=== PATIENT | male | born 1980 | race African-American/Black ===

== ENCOUNTER 2017-05-08 18:25 | Emergency (ER) | payer BC ==
[2017-05-08] MEDS ORDERED: IV NORMAL SALINE 1000ML BAG 1,000 ML IV (19:15)
== END 2017-05-08 19:47 | disposition left against medical advice (07) ==
LOC: ER 18:25
DX: F16.10 Hallucinogen abuse, uncomplicated (principal); F12.10 Cannabis abuse, uncomplicated; I10 Essential (primary) hypertension; F10.20 Alcohol dependence, uncomplicated
CPT/HCPCS: 99283; 99284

== ENCOUNTER 2018-08-05 07:32 | Day surgery (SDC) | payer BC ==
--- NOTE | 2018-08-05 07:06 | HP ---
ADMIT DATE: HISTORY OF PRESENT ILLNESS: The patient is referred by Dr. Rich because of right inguinal mass. The history shows that he has had this mass for about 6 months to a year and is getting larger all the time. He does not have a lot of pain with it, but he states every morning when we wakes up it is gone, but it is back when he stands up. PAST MEDICAL HISTORY: Shows normal childhood diseases. He does have hypertension for which he takes medication. He has had arthroscopic shoulder surgery on the right, but no other surgery. He has no other diseases and has no allergies. SOCIAL HISTORY: Shows that he does use marijuana from time to time and drinks about 3 beers per day. He does not use illicit drugs otherwise. He does not smoke cigarettes, though he does use marijuana. FAMILY HISTORY: Noncontributory other than his mother had hypertension. REVIEW OF SYSTEMS: Basically negative except for this mass in the right groin. PHYSICAL EXAMINATION: GENERAL: Shows an alert male in no acute distress. HEAD, EYES, EARS, NOSE AND THROAT: Grossly normal. CHEST: Clear to auscultation bilaterally. HEART: He had no murmurs, heaves, friction rubs or thrills and the rate was estimated to be at 72 beats per minute and it was regular. ABDOMEN: Negative. GENITOURINARY: Examination of the genitalia also did show normal male genitalia with a large mass in the right groin, probably larger than a grapefruit. I could not reduce it. It was not particularly tender. RECTAL: Not done. EXTREMITIES: Grossly normal. IMPRESSION: 1. Hypertension. 2. Incarcerated right inguinal hernia. TRICIA OJEDA MD DR: LASHAWN/samantha JOB#: [id number] / [id number] WILLIAN
[~2018-08-05 07:32] MED LIST: AMLO10TA8 PO; AMLO2.5T2 PO; BUPIVAC MPF-EPI 0.5%-1:200000 30 ML VIAL. ONE; DOCU-109 PO; HYDROmorphone 2 MG/ML VIAL IV PRN; IV RINGERS,LACTATED 1000ML 1,000 ML IV SCH; LIDOCAINE 1% PF 2 ML VIAL. ID PRN; MORPHINE SULFATE 2 MG/ML VIAL. IV PRN; ONDA4TAB10 SL; ONDANSETRON PF 4 MG/2 ML VIAL. IV PRN; OXYC1TAB15 PO; PROCHLORPERAZINE 10 MG/2 ML VIAL. IV PRN; fentaNYL PF VIAL 100 MCG/2 ML VIAL IV PRN
[2018-08-05] MEDS ORDERED: ceFAZolin SODIUM 3 GM in IV DEXTROSE 5% 100ML 100 ML IV PRN (08:00)
--- NOTE | 2018-08-05 08:16 | PDOC ---
SURGICAL PROGRESS NOTE Subjective Surgeon...........................Reinaldo Preop Diagnosis...............Incarcerated right inguinal hernia Post op Diagnosis............same Anesthesia......................general Procedure........................Inguinal hernia repair Blood loss.......................7 cc Drains.............................none Fluids.............................see anesthesia sheet Condition.........................satisfactory TRICIA OJEDA MD Aug 05, 2018 08:16
[2018-08-05 08:23] LABS: BASO % 1 % (0-3); EOS # 0.1 x10^3/uL (0.0-0.7); EOS % 1 % (0-3); HEMATOCRIT 37.9 % (39.0-53.0); LYMPH # 1.8 x10^3/uL (1.0-4.8); LYMPH % 33 % (24-48); MEAN CORPUSCULAR HEMOGLOBIN 27 pg (25-35); MEAN CORPUSCULAR HGB CONC 34 g/dL (31-37); MEAN CORPUSCULAR VOLUME 80 fL (79-100); MONO # 0.5 x10^3/uL (0.0-1.1); MONO % 9 % (0-9); NEUT % 56 % (31-73); PLATELET COUNT 249 x10^3/uL (140-400); RED BLOOD COUNT 4.76 x10^6/uL (4.30-5.70); RED CELL DISTRIBUTION WIDTH 13.4 % (11.5-14.5); WHITE BLOOD COUNT 5.4 x10^3/uL (4.0-11.0)
[2018-08-05 08:33] LABS: CALCIUM 8.9 mg/dL (8.5-10.1); CREATININE 1.3 mg/dL (0.7-1.3); POTASSIUM 3.9 mmol/L (3.5-5.1)
[2018-08-05 08:40] LABS: ALBUMIN 3.8 g/dL (3.4-5.0); TOTAL BILIRUBIN 0.9 mg/dL (0.2-1.0); TOTAL PROTEIN 7.7 g/dL (6.4-8.2)
[2018-08-05 08:49] LABS: PROTHROMBIN TIME PATIENT 12.9 SEC (11.7-14.0)
[2018-08-05] MEDS ORDERED: fentaNYL PF VIAL 250 MCG/5 ML VIAL ONE (08:55)
[2018-08-05] MEDS ORDERED: MIDAZOLAM HCL/PF 2 MG/2 ML VIAL. ONE (08:55)
[2018-08-05] MEDS ORDERED: LIDOCAINE 2% PF 5 ML VIAL. ONE (08:56)
[2018-08-05] MEDS ORDERED: ONDANSETRON PF 4 MG/2 ML VIAL. ONE (08:56)
[2018-08-05] MEDS ORDERED: PROPOFOL 20 ML IV ONE (08:56)
[2018-08-05] MEDS ORDERED: DEXAMETHASONE SOD PHOS 20 MG/5 ML VIAL. ONE (08:56)
--- NOTE | 2018-08-05 09:28 | PDOC ---
SURGICAL PROGRESS NOTE Subjective No change i dictated H&P. Vital Signs Vital Signs Date Time Temp Pulse Resp B/P (MAP) Pulse Ox O2 Delivery O2 Flow Rate FiO2 08/05/18 08:00 97.7 63 16 152/100 95 Room Air 97.7 Labs Laboratory Tests Test 08/05/18 08:05 White Blood Count 5.4 x10^3/uL (4.0-11.0) Red Blood Count 4.76 x10^6/uL (4.30-5.70) Hemoglobin 13.0 g/dL (13.0-17.5) Hematocrit 37.9 % (39.0-53.0) Mean Corpuscular Volume 80 fL (79-100) Mean Corpuscular Hemoglobin 27 pg (25-35) Mean Corpuscular Hemoglobin Concent 34 g/dL (31-37) Red Cell Distribution Width 13.4 % (11.5-14.5) Platelet Count 249 x10^3/uL (140-400) Neutrophils (%) (Auto) 56 % (31-73) Lymphocytes (%) (Auto) 33 % (24-48) Monocytes (%) (Auto) 9 % (0-9) Eosinophils (%) (Auto) 1 % (0-3) Basophils (%) (Auto) 1 % (0-3) Neutrophils # (Auto) 3.0 x10^3uL (1.8-7.7) Lymphocytes # (Auto) 1.8 x10^3/uL (1.0-4.8) Monocytes # (Auto) 0.5 x10^3/uL (0.0-1.1) Eosinophils # (Auto) 0.1 x10^3/uL (0.0-0.7) Basophils # (Auto) 0.0 x10^3/uL (0.0-0.2) Prothrombin Time 12.9 SEC (11.7-14.0) Prothromb Time International Ratio 1.0 (0.8-1.1) Sodium Level 142 mmol/L (136-145) Potassium Level 3.9 mmol/L (3.5-5.1) Chloride Level 105 mmol/L (98-107) Carbon Dioxide Level 27 mmol/L (21-32) Anion Gap 10 (6-14) Blood Urea Nitrogen 16 mg/dL (8-26) Creatinine 1.3 mg/dL (0.7-1.3) Estimated GFR (Cockcroft-Gault) 74.0 BUN/Creatinine Ratio 12 (6-20) Glucose Level 98 mg/dL (70-99) Calcium Level 8.9 mg/dL (8.5-10.1) Total Bilirubin 0.9 mg/dL (0.2-1.0) Aspartate Amino Transf (AST/SGOT) 21 U/L (15-37) Alanine Aminotransferase (ALT/SGPT) 32 U/L (16-63) Alkaline Phosphatase 72 U/L (46-116) Total Protein 7.7 g/dL (6.4-8.2) Albumin 3.8 g/dL (3.4-5.0) Albumin/Globulin Ratio 1.0 (1.0-1.7) Laboratory Tests Test 08/05/18 08:05 White Blood Count 5.4 x10^3/uL (4.0-11.0) Red Blood Count 4.76 x10^6/uL (4.30-5.70) Hemoglobin 13.0 g/dL (13.0-17.5) Hematocrit 37.9 % (39.0-53.0) Mean Corpuscular Volume 80 fL (79-100) Mean Corpuscular Hemoglobin 27 pg (25-35) Mean Corpuscular Hemoglobin Concent 34 g/dL (31-37) Red Cell Distribution Width 13.4 % (11.5-14.5) Platelet Count 249 x10^3/uL (140-400) Neutrophils (%) (Auto) 56 % (31-73) Lymphocytes (%) (Auto) 33 % (24-48) Monocytes (%) (Auto) 9 % (0-9) Eosinophils (%) (Auto) 1 % (0-3) Basophils (%) (Auto) 1 % (0-3) Neutrophils # (Auto) 3.0 x10^3uL (1.8-7.7) Lymphocytes # (Auto) 1.8 x10^3/uL (1.0-4.8) Monocytes # (Auto) 0.5 x10^3/uL (0.0-1.1) Eosinophils # (Auto) 0.1 x10^3/uL (0.0-0.7) Basophils # (Auto) 0.0 x10^3/uL (0.0-0.2) Prothrombin Time 12.9 SEC (11.7-14.0) Prothromb Time International Ratio 1.0 (0.8-1.1) Sodium Level 142 mmol/L (136-145) Potassium Level 3.9 mmol/L (3.5-5.1) Chloride Level 105 mmol/L (98-107) Carbon Dioxide Level 27 mmol/L (21-32) Anion Gap 10 (6-14) Blood Urea Nitrogen 16 mg/dL (8-26) Creatinine 1.3 mg/dL (0.7-1.3) Estimated GFR (Cockcroft-Gault) 74.0 BUN/Creatinine Ratio 12 (6-20) Glucose Level 98 mg/dL (70-99) Calcium Level 8.9 mg/dL (8.5-10.1) Total Bilirubin 0.9 mg/dL (0.2-1.0) Aspartate Amino Transf (AST/SGOT) 21 U/L (15-37) Alanine Aminotransferase (ALT/SGPT) 32 U/L (16-63) Alkaline Phosphatase 72 U/L (46-116) Total Protein 7.7 g/dL (6.4-8.2) Albumin 3.8 g/dL (3.4-5.0) Albumin/Globulin Ratio 1.0 (1.0-1.7) TRICIA OJEDA MD Aug 05, 2018 09:28
[2018-08-05] MEDS ORDERED: ROCURONIUM 50 MG/5 ML VIAL. ONE (10:00)
[2018-08-05] MEDS ORDERED: BUPIVAC MPF-EPI 0.5%-1:200000 30 ML VIAL. ONE (10:20)
[2018-08-05] MEDS ORDERED: fentaNYL PF VIAL 100 MCG/2 ML VIAL ONE (11:37)
[2018-08-05] MEDS ORDERED: PROCHLORPERAZINE 10 MG/2 ML VIAL. ONE (11:37)
[2018-08-05] MEDS ORDERED: SEVOFLURANE > 120 MINUTES. IH ONE (12:03)
[2018-08-05] MEDS ORDERED: NEOSTIGMINE METHYLSULFATE 5 MG/5 ML SYRINGE. ONE (12:03)
[2018-08-05] MEDS ORDERED: GLYCOPYRROLATE 1 MG/5 ML VIAL. ONE (12:03)
[2018-08-05] MEDS ORDERED: HYDROcodone/APAP 7.5/325MG 1 TAB TABLET PO ONE ×2 (12:45)
[2018-08-05] MEDS ORDERED: hydrALAZINE 20 MG/ML VIAL. ONE (12:50)
[2018-08-05] MEDS ORDERED: HYDR20VI5 IVP (12:55)
[2018-08-05] MEDS ORDERED: HYDR-2765 PO (12:57)
[2018-08-05] MEDS ORDERED: hydrALAZINE 20 MG/ML VIAL. IVP PRN (13:00)
[2018-08-05 13:15] VITALS: BP 164/97
--- NOTE | 2018-08-06 00:06 | OP ---
DATE OF SURGERY: 08/05/2018 SURGEON: Luis F Ojeda MD PREOPERATIVE DIAGNOSIS: Large incarcerated right inguinal hernia. POSTOPERATIVE DIAGNOSIS: Large incarcerated right inguinal hernia. ANESTHESIA: General. PROCEDURE: Repair of large incarcerated right inguinal hernia. TECHNIQUE: Under general anesthesia, the patient was properly prepped and draped in routine fashion. An incision was made in the groin on the right side following the skin lines with a #15 blade and carried down through the skin. We then divided the subcutaneous fat down to the external oblique aponeurosis with cautery. We made a small incision in the direction of the fibers and the external oblique aponeurosis spread apart and then with Metzenbaum scissors, we divided the fibers in the direction of the aponeurosis to and including the external inguinal ring. The mass was quite large extending into the scrotum and we slowly went around the cord structures. At the pubic tubercle, I placed a Fitz drain around there. This was quite large. Some of it had been reduced when he went to sleep, but not all of it. We then slowly reduced the contents of the sac and we were able to actually invert the testicle, which came up there. The sac was in the cord and we slowly were able to push away lot of fibers, identified the wall of the sac, grabbed with [place] clamps and slowly pushed away using Metzenbaum scissors. As this had been there some time and there was scar tissue there, divided the sac from the surrounding structures not injuring the cord structures. We did this until we got completely well up into the internal inguinal ring, went all the way around the sac, pushed all the fibers away and inverted it. We then placed 2 extra-large PerFix plugs that were made out of Phasix into the area that had been sutured together with 2-0 Prolene. We sutured these in place at the pubic tubercle and also ilioinguinal ligament and Darren's ligament, sutured these plugs there, so they would not move and also up to the transversalis fascia. We did this underneath and the plugs were in good position with reduction of the hernia. We did not enter the sac. We then made a keyhole in the Phasix patch and then placed it around the cord structures, sutured it with 2-0 Prolene so that the cord structures would not be too tight there. We then placed this on the posterior inguinal floor and then suturing 2 sutures at the pubic tubercle with this, ran one laterally taking the shelving edge of Poupart's ligament and the Phasix patch well up past the internal inguinal ring. We did the other side taking the transversalis fascia and going medially back around to the external inguinal ring. The patch was now in good position with the cord structures in normal position. The testicle had been reduced to its normal position and all was basically completed. The sutures have been tied. We injected 0.5% Marcaine and epinephrine into the area and this portion of the procedure was done. We then approximated the external oblique aponeurosis using 2-0 Prolene. This was anesthetized with 0.5% Marcaine and epinephrine also. Subcutaneous was irrigated with saline and then approximated using 4-0 Vicryl and the skin was closed using a subcuticular 5-0 Vicryl. Sterile Tegaderm dressing was applied and the procedure was terminated. ESTIMATED BLOOD LOSS: Less than 20 mL. FLUIDS GIVEN: Can be obtained from the anesthesia sheet. DRAINS: No drains were used. CONDITION OF THE PATIENT: Satisfactory as he has returned to the recovery room. LUIS F OJEDA MD DR: LASHAWN/samantha JOB#: [id number] / [id number] WILLIAN
== END 2018-08-05 13:50 | disposition home or self-care (01) ==
LOC: SURG 07:32
PROVIDERS: ATTEND Specialist
DX: K40.30 Unilateral inguinal hernia, with obstruction, without gangrene, not specified as recurrent (principal); I10 Essential (primary) hypertension; Z98.890 Other specified postprocedural states; F12.90 Cannabis use, unspecified, uncomplicated; Z72.89 Other problems related to lifestyle; Z82.49 Family history of ischemic heart disease and other diseases of the circulatory system
CPT/HCPCS: 36415; 49507; 80053; 85025; 85610; A7015; C1781; J0360; J0690; J1100; J2001; J2250; J2405; J2704; J2710; J3010; J3490; J7120; J0780

== ENCOUNTER 2020-03-31 10:23 | Emergency (ER) | payer BC ==
[~2020-03-31] VITALS: Ht 180.3 cm; Wt 82.0 kg
[~2020-03-31 10:23] MED LIST changes: +AMLO-187 PO; -AMLO10TA8 PO; -BUPIVAC MPF-EPI 0.5%-1:200000 30 ML VIAL. ONE; +HYDR-2765 PO; +HYDR20VI5 IVP; -HYDROmorphone 2 MG/ML VIAL IV PRN; -IV RINGERS,LACTATED 1000ML 1,000 ML IV SCH; -LIDOCAINE 1% PF 2 ML VIAL. ID PRN; -MORPHINE SULFATE 2 MG/ML VIAL. IV PRN; -ONDANSETRON PF 4 MG/2 ML VIAL. IV PRN; -PROCHLORPERAZINE 10 MG/2 ML VIAL. IV PRN; -fentaNYL PF VIAL 100 MCG/2 ML VIAL IV PRN
[2020-03-31 11:02] VITALS: BP 149/89
[2020-03-31 11:14] LABS: BASO % 0 % (0-3); EOS % 0 % (0-3); HEMATOCRIT 37.5 % (39.0-53.0); LYMPH # 1.5 x10^3/uL (1.0-4.8); LYMPH % 22 % (24-48); MEAN CORPUSCULAR HEMOGLOBIN 29 pg (25-35); MEAN CORPUSCULAR HGB CONC 35 g/dL (31-37); MEAN CORPUSCULAR VOLUME 83 fL (79-100); MONO # 0.7 x10^3/uL (0.0-1.1); MONO % 10 % (0-9); NEUT # 4.7 x10^3/uL (1.8-7.7); NEUT % 68 % (31-73); PLATELET COUNT 239 x10^3/uL (140-400); RED BLOOD COUNT 4.53 x10^6/uL (4.30-5.70); RED CELL DISTRIBUTION WIDTH 13.6 % (11.5-14.5); WHITE BLOOD COUNT 6.9 x10^3/uL (4.0-11.0)
[2020-03-31 11:24] LABS: CALCIUM 9.4 mg/dL (8.5-10.1); CREATININE 1.7 mg/dL (0.7-1.3); POTASSIUM 3.8 mmol/L (3.5-5.1)
[2020-03-31 11:30] LABS: ALBUMIN 3.7 g/dL (3.4-5.0); ALBUMIN/GLOBULIN RATIO 1.1 (1.0-1.7); TOTAL BILIRUBIN 0.8 mg/dL (0.2-1.0); TOTAL PROTEIN 7.1 g/dL (6.4-8.2)
--- NOTE | 2020-03-31 18:32 | EKG ---
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
== END 2020-03-31 11:25 | disposition left against medical advice (07) ==
LOC: ER 10:23
DX: R55 Syncope and collapse (principal); Z53.21 Procedure and treatment not carried out due to patient leaving prior to being seen by health care provider
CPT/HCPCS: 36415; 80053; 85025; 93005; G0480; 99284